=== PATIENT | male | born 1955 | race American Indian/Alaskan Native ===

== ENCOUNTER 2021-01-15 06:26 | Inpatient (IN) | payer OTHER, MEDICARE ==
[2021-01-15] MEDS ORDERED: FUROSEMIDE 40 MG/4 ML INJ IV ONE (06:33)
[2021-01-15] MEDS ORDERED: ONDANSETRON 4 MG/2 ML INJ IV ONE (06:34)
[2021-01-15] MEDS ORDERED: MORPHINE 4 MG/1 ML INJ IV ONE (06:34)
--- NOTE | 2021-01-15 06:42 | Emergency Department Report ---
ED Shortness of Breath HPI - General Chief Complaint: Dyspnea/Respdistress Stated Complaint: RESPIRATORY DISTRESS Time Seen by Provider: 01/15/21 06:30 Source: patient, EMS Mode of arrival: Stretcher Limitations: No Limitations - History of Present Illness Initial Comments: CC: shortness of breath, cough, body aches HPI: This is a 66 yo male with hx of CHF, AICD in situ, hyperlipidemia, HTN hx of ventricular fibrillation who presents with severe shortness of breath for 3 hours prior to arrival. Patient has had body aches and productive cough with yellow sputum. No leg swelling. No chest pain. EMS detected oxygen saturation 68% on room air. He was ambulatory on scene in spite severe hypoxia. Denies fever, headache, diarrhea, chest pain, leg swelling. Fully vaccinated against COVID-19 in July. Admitted to [place] last year. [employer] and PCP are within [place] [facility]. Patient immediately placed on CPAP with improvement of symptoms. Oxygen saturation improved to 94%. Patient received albuterol 5 mg nebulizer therapy. Patient has not been admitted for shortness of breath related to CHF on previous occasion. MD Complaint: shortness of breath, cough -: Sudden (3 hours ago) Severity: severe Consistency: constant Improves With: oxygen, bronchodilators (Albuterol), other (CPAP) Worsens With: lying flat Known History Of: congestive heart failure, other (Body aches and cough) Context: recent URI (Body aches and cough) Associated Symptoms: cough, sputum production - Related Data Home Medications Medication Instructions Recorded Confirmed Last Taken Fosinopril Sodium 10 mg PO DAILY 07/09/15 07/09/15 07/09/15 Hydralazine HCl 25 mg PO TID 07/09/15 07/09/15 07/09/15 Metoprolol Succinate 200 mg PO DAILY 07/09/15 07/09/15 07/09/15 Spironolactone 12.5 mg PO DAILY 07/10/15 07/10/15 Unknown Previous Rx's Medication Instructions Recorded Last Taken Type Amiodarone [Cordarone 200 MG TAB] 200 mg PO BID #60 tablet 07/11/15 Unknown Rx Furosemide [Lasix TAB] 80 mg PO QDAY #30 tablet 07/11/15 Unknown Rx Metoprolol Xl [Metoprolol 200 mg PO QDAY #30 tablet 07/11/15 Unknown Rx SUCCINATE ER TAB] lisinopriL [Zestril TAB] 10 mg PO QDAY #30 tablet 07/11/15 Unknown Rx oxyCODONE /ACETAMINOPHEN [Percocet 1 tab PO Q6H PRN #30 tablet 07/11/15 Unknown Rx 5/325 mg] traZODone [Desyrel] 50 mg PO QHS #30 tablet 07/11/15 Unknown Rx Allergies Allergy/AdvReac Type Severity Reaction Status Date / Time No Known Allergies Allergy Unverified 07/08/15 22:32 ED Review of Systems ROS: Stated complaint: RESPIRATORY DISTRESS Other details as noted in HPI ED Past Medical Hx - Past Medical History Previous Medical History?: Yes Hx Hypertension: Yes Hx Congestive Heart Failure: Yes Additional medical history: chemo therapy for prostate CA, - Surgical History Past Surgical History?: Yes Hx Pacemaker: Yes (defibrillator) Hx Internal Defibrillator: Yes - Family History Family history: hypertension - Social History Smoking Status: Never Smoker Substance Use Type: None - Medications Home Medications: Home Medications Medication Instructions Recorded Confirmed Last Taken Type Fosinopril Sodium 10 mg PO DAILY 07/09/15 07/09/15 07/09/15 History Hydralazine HCl 25 mg PO TID 07/09/15 07/09/15 07/09/15 History Metoprolol Succinate 200 mg PO DAILY 07/09/15 07/09/15 07/09/15 History Spironolactone 12.5 mg PO DAILY 07/10/15 07/10/15 Unknown History Amiodarone [Cordarone 200 MG TAB] 200 mg PO BID #60 tablet 07/11/15 Unknown Rx Furosemide [Lasix TAB] 80 mg PO QDAY #30 tablet 07/11/15 Unknown Rx Metoprolol Xl [Metoprolol 200 mg PO QDAY #30 tablet 07/11/15 Unknown Rx SUCCINATE ER TAB] lisinopriL [Zestril TAB] 10 mg PO QDAY #30 tablet 07/11/15 Unknown Rx oxyCODONE /ACETAMINOPHEN [Percocet 1 tab PO Q6H PRN #30 tablet 07/11/15 Unknown Rx 5/325 mg] traZODone [Desyrel] 50 mg PO QHS #30 tablet 07/11/15 Unknown Rx ED Physical Exam - General Limitations: No Limitations General appearance: alert, other (Moderate work of breathing with CPAP in place speaking full word sentences with effort ) - Head Head exam: Present: atraumatic, normocephalic - Eye Eye exam: Present: normal appearance - ENT ENT exam: Present: mucous membranes moist - Neck Neck exam: Present: normal inspection, full ROM - Respiratory Respiratory exam: Present: respiratory distress, rales, rhonchi, accessory muscle use, decreased breath sounds - Cardiovascular Cardiovascular Exam: Present: regular rate, normal rhythm, normal heart sounds. Absent: systolic murmur, diastolic murmur, rubs, gallop - GI/Abdominal GI/Abdominal exam: Present: soft. Absent: distended, tenderness, guarding, rebound - Rectal Rectal exam: Present: deferred - Extremities Exam Extremities exam: Present: normal inspection, other (No lower extremity edema) - Neurological Exam Neurological exam: Present: alert, oriented X3 - Psychiatric Psychiatric exam: Present: normal affect, normal mood - Skin Skin exam: Present: warm, dry, intact, normal color. Absent: rash ED Course Vital Signs 01/15/21 01/15/21 01/15/21 06:25 06:33 09:59 Temperature 97.3 F L Pulse Rate 60 68 Respiratory 22 26 H Rate Blood Pressure 152/99 Blood Pressure 152/99 [Right] O2 Sat by Pulse 100 100 94 Oximetry - Reevaluation(s) Reevaluation #1: 01/15/21 08:29 I reassessed patient. He is appears comfortable on noninvasive positive. Patient. With settings IPAP 16 EPAP 10 FiO2 30% oxygen saturation 94%. As respiratory therapist to provide a trial of Venturi mask. Reevaluation #2: 01/15/21 09:30 Respiratory therapist therapy update. She reassessed the patient. She placed patient on 4 L nasal cannula. Patient is comfortable and maintaining oxygen saturations. 01/15/21 09:30 ED Medical Decision Making - Lab Data Result diagrams: 01/15/21 07:04 01/15/21 07:04 - Radiology Data Radiology results: report reviewed [facility] [address] [place] [address] XRay Report Signed Patient: EMIGDIO DENG MR#: [id number] : 1955 Acct:[id number] Age/Sex: 66 / M ADM Date: 01/15/21 Loc: ED Attending Dr: Ordering Physician: Bekah Mccoy MD Date of Service: 01/15/21 Procedure(s): XR chest 1V ap Accession Number(s): [id number] cc: Bekah Mccoy MD Fluoro Time In Minutes: CHEST 1 VIEW INDICATION: Dyspnea. COMPARISON: 07/08/2015 FINDINGS: SUPPORT DEVICES: None. HEART: Stable cardiomegaly with cardiac leads projecting over the right atrium and the right ventricle. LUNGS/PLEURA: Moderate interstitial edema. No effusion. ADDITIONAL FINDINGS: None. IMPRESSION: 1. Stable cardiomegaly with moderate edema. Signer Name: Ej Massey MD Signed: 01/15/2021 7:04 AM Workstation Name: [id number] Transcribed By: MICHEL Dictated By: Ej Massey MD Electronically Authenticated By: Ej Massey MD Signed Date/Time: 01/15/21703 DD/ 2 TD/TT: - Medical Decision Making This is a 6-year-old male with history of CHF/cardiomyopathy who presents with severe hypoxia requiring noninvasive positive pressure ventilation. Patient also presents with cough productive with body aches. He is vaccinated for COVID-19. However I am concerned for breakthrough Covid infection. Patient has not been admitted for CHF exacerbation according to his report. He has not had severe shortness of breath suggest this. Patient does have lymphopenia on CBC. Elevated ferritin, mildly elevated D-dimer. BNP also elevated. Address multifocal pneumonia and her myopathy with ceftriaxone IV, IV azithromycin, IV Decadron, IV Lasix. Patient only has slightly elevated blood pressure. Patient is admitted to [facility] [place] telemetry. He is comfortable on noninv asive positive pressure ventilation at this time. Critical Care Time: Yes Critical care time in (mins) excluding proc time.: 40 Critical care attestation.: If time is entered above; I have spent that time in minutes in the direct care of this critically ill patient, excluding procedure time. 40 minutes of critical care time excluding procedures were used in the care of the patient. I listen to the EMS radio report alongside charge nurse prior to patient's arrival. I asked charge nurse to contact respiratory therapist for noninvasive positive pressure ventilation to be present in room prior to patient's arrival. I met the patient and paramedics at the EMS wall. I escorted patient in paramedics to treatment room while obtaining bedside reportI obtained history from EMS at the bedside. I discussed treatment plan with the nursing team members. I discussed treatment plan respiratory therapist. I was concerned for imminent airway compromise concerning severe hypoxia. I kept the family members informed. Patient required multiple interventions and reassessments. ED Disposition Clinical Impression: Acute respiratory failure with hypoxia, Suspected COVID-19 virus infection, Multifocal pneumonia, Acute systolic heart failure, Pulmonary edema Disposition: OP ADMIT IP TO THIS HOSP Is pt being admited?: Yes Does the pt Need Aspirin: No Condition: Fair Instructions: Pulmonary Edema (ED), Bacterial Pneumonia (ED) Referrals: PRIMARY CARE, [Primary Care Provider] - 3-5 Days
--- NOTE | 2021-01-15 07:08 | XRay Report ---
CHEST 1 VIEW INDICATION: Dyspnea. COMPARISON: 07/08/2015 FINDINGS: SUPPORT DEVICES: None. HEART: Stable cardiomegaly with cardiac leads projecting over the right atrium and the right ventricl e. LUNGS/PLEURA: Moderate interstitial edema. No effusion. ADDITIONAL FINDINGS: None. IMPRESSION: 1. Stable cardiomegaly with moderate edema. Signer Name: Ej Massey MD Signed: 01/15/2021 7:04 AM Workstation Name: [id number]
[2021-01-15 07:35] LABS: Basophils % (Auto) 0.4 % (0.0-1.8); Eosinophils # (Auto) 0.1 K/mm3 (0.0-0.4); Eosinophils % (Auto) 1.2 % (0.0-4.3); Hematocrit 36.2 % (35.5-45.6); Hemoglobin 12.4 gm/dl (11.8-15.2); Lymphocytes # (Auto) 0.7 K/mm3 (1.2-5.4); Lymphocytes % (Auto) 8.7 % (13.4-35.0); Mean Corpuscular HGB Conc 34 % (32-34); Mean Corpuscular Volume 104 fl (84-94); Monocytes # (Auto) 0.5 K/mm3 (0.0-0.8); Monocytes % (Auto) 6.3 % (0.0-7.3); Platelet Count 233 K/mm3 (140-440); Red Blood Count 3.48 M/mm3 (3.65-5.03); Red Cell Distribution Width 13.2 % (13.2-15.2)
[2021-01-15 07:48] LABS: C-Reactive Protein 0.1 mg/dL (0.00-1.30)
[2021-01-15 08:06] LABS: Alanine Aminotransferase 21 units/L (7-56); Albumin 4.2 g/dL (3.9-5); BUN/Creatinine Ratio 18; Blood Urea Nitrogen 25 mg/dL (9-20); Calcium 9.2 mg/dL (8.4-10.2); Hemolysis Index 5
[2021-01-15] MEDS ORDERED: cefTRIAXone/NS 1 GM/50 ML 1 GM/50 ML BAG IV ONE (08:20)
[2021-01-15] MEDS ORDERED: AZITHROMYCIN/NS 500 MG/250 ML 500 MG/250 ML BAG IV ONE (08:20)
[2021-01-15] MEDS ORDERED: dexAMETHasone 20 MG/5 ML VIAL IV ONE (08:20)
[2021-01-15] MEDS ORDERED: ALBUTEROL 2.5 MG/3 ML NEBU IH PRN (09:09)
[2021-01-15] MEDS ORDERED: ACETAMINOPHEN 325 MG TAB PO PRN (09:09)
[2021-01-15] MEDS ORDERED: NALOXONE 0.4 MG/1 ML INJ IV PRN (09:09)
[2021-01-15] MEDS ORDERED: MORPHINE 2 MG/1 ML INJ IV PRN (09:09)
[2021-01-15] MEDS ORDERED: ONDANSETRON 4 MG/2 ML INJ IV PRN (09:09)
--- NOTE | 2021-01-15 09:18 | History and Physical Report ---
History of Present Illness Date of examination: 01/15/21 Date of admission: 01/15/21 Chief complaint: shortness of breath History of present illness: Patient is a 66-year-old male with hx of CHF, AICD in situ, hyperlipidemia, HTN hx of ventricular fibrillation, BARBARA who presents with severe shortness of breath for 3 hours prior to arrival. He reports that this morning but he woke up with cough and profuse sweating. He proceeded to call EMS who on arrival noted that the patient's oxygen saturation was 68% on room air and remarkably was ambulatory despite his severe hypoxia. He was brought to the hospital for further evaluation. He denies any chest pain nausea vomiting or diarrhea he reports that he was fully vaccinated against COVID-19 in July. 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 He does tell me that he is supposed to be on a CPAP at home for obstructivesleepapnea but has not been able to use it due to not being able to tolerate the device. In the ER he was immediately put on BiPAP with oxygen im provement to 94%. Past History Past Medical History: CAD, heart failure, hypertension, other (prostate CA S/P CHEMO) Past Surgical History: Other (AICD) Family history: no significant family history Medications and Allergies Allergies Allergy/AdvReac Type Severity Reaction Status Date / Time No Known Allergies Allergy Unverified 07/08/15 22:32 Home Medications Medication Instructions Recorded Confirmed Last Taken Type Fosinopril Sodium 10 mg PO DAILY 07/09/15 07/09/15 07/09/15 History Hydralazine HCl 25 mg PO TID 07/09/15 07/09/15 07/09/15 History Metoprolol Succinate 200 mg PO DAILY 07/09/15 07/09/15 07/09/15 History Spironolactone 12.5 mg PO DAILY 07/10/15 07/10/15 Unknown History Amiodarone [Cordarone 200 MG TAB] 200 mg PO BID #60 tablet 07/11/15 Unknown Rx Furosemide [Lasix TAB] 80 mg PO QDAY #30 tablet 07/11/15 Unknown Rx Metoprolol Xl [Metoprolol 200 mg PO QDAY #30 tablet 07/11/15 Unknown Rx SUCCINATE ER TAB] lisinopriL [Zestril TAB] 10 mg PO QDAY #30 tablet 07/11/15 Unknown Rx oxyCODONE /ACETAMINOPHEN [Percocet 1 tab PO Q6H PRN #30 tablet 07/11/15 Unknown Rx 5/325 mg] traZODone [Desyrel] 50 mg PO QHS #30 tablet 07/11/15 Unknown Rx Active Meds: Active Medications Acetaminophen (Acetaminophen 325 Mg Tab) 650 mg PO Q4H PRN PRN Reason: Pain MILD(1-3)/Fever >100.5/ANGELES Albuterol (Albuterol 2.5 Mg/3 Ml Nebu) 2.5 mg IH Q3HRT PRN PRN Reason: Shortness Of Breath Albuterol/Ipratropium (Ipratropium/Albuterol Sulfate 3 Ml Ampul.Neb) 1 ampul IH Q6HRT SAMIA Amiodarone HCl (Amiodarone 200 Mg Tab) 200 mg PO DAILY SAMIA Furosemide (Furosemide 40 Mg Tab) 80 mg PO QDAY SAMIA Azithromycin (Zithromax/Ns) 500 mg in 250 mls @ 250 mls/hr IV ONCE ONE; Protocol Stop: 01/15/21 09:19 Morphine Sulfate (Morphine 2 Mg/1 Ml Inj) 2 mg IV Q4H PRN PRN Reason: Pain, Moderate (4-6) Naloxone HCl (Naloxone 0.4 Mg/1 Ml Inj) 0.1 mg IV Q2MIN PRN PRN Reason: Res Rate </= 8 or 02 SAT < 92% Ondansetron HCl (Ondansetron 4 Mg/2 Ml Inj) 4 mg IV Q4H PRN PRN Reason: Nausea And Vomiting Sodium Chloride (Sodium Chloride 0.9% 10 Ml Flush Syringe) 10 ml IV BID SAMIA Sodium Chloride (Sodium Chloride 0.9% 10 Ml Flush Syringe) 10 ml IV PRN PRN PRN Reason: LINE FLUSH Review of Systems All systems: negative Constitutional: sweats Cardiovascular: shortness of breath, no chest pain, no orthopnea, no rapid/irregular heart beat, no edema, no syncope, no lightheadedness Respiratory: cough, shortness of breath, no cough with sputum, no hemoptysis, no congestion, no home oxygen Gastrointestinal: no vomiting, no constipation Musculoskeletal: no neck pain, no low back pain, no shooting leg pain, no morning stiffness, no muscle cramps Integumentary: no pruritis, no sores Neurological: no tingling, no tremors, no convulsions, no change in mentation, no double vision, no hearing difficulties Exam - Physical Exam Narrative exam: VITAL SIGNS: Reviewed. GENERAL: The patient appears normally developed, obese, mild distress vital signs as documented. HEAD: No signs of head trauma. EYES: Pupils are equal. Extraocular motions intact. EARS: Hearing grossly intact. MOUTH: Oropharynx is normal. NECK: No adenopathy, no JVD. CHEST: Chest with diminished breath sounds bilaterally. Tachypnea no wheezes, rales, or rhonchi. CARDIAC: Regular rate and rhythm. S1 and S2, without murmurs, gallops, or rubs. VASCULAR: No Edema. Peripheral pulses normal and equal in all extremities. ABDOMEN: Soft, non tender and non distended. No rebound or guarding, and no masses palpated. Bowel Sounds normal. MUSCULOSKELETAL: Good range of motion of all major joints. Extremities without clubbing, cyanosis or edema. NEUROLOGIC EXAM: Alert and oriented x 3 No focal sensory or strength deficits. Speech normal. Follows commands. PSYCHIATRIC: Mood normal. SKIN: detail exam as documented in skin assessment - Constitutional Vitals: Temp Pulse Resp BP Pulse Ox 97.3 F L 68 26 H 152/99 100 01/15/21 06:33 01/15/21 06:33 01/15/21 06:33 01/15/21 06:33 01/15/21 06:33 Results - Labs CBC & Chem 7: 01/15/21 07:04 01/15/21 07:04 Labs: Laboratory Last Values WBC 7.7 K/mm3 (4.5-11.0) 01/15/21 07:04 RBC 3.48 M/mm3 (3.65-5.03) L 01/15/21 07:04 Hgb 12.4 gm/dl (11.8-15.2) 01/15/21 07:04 Hct 36.2 % (35.5-45.6) 01/15/21 07:04 MCV 104 fl (84-94) H 01/15/21 07:04 MCH 36 pg (28-32) H 01/15/21 07:04 MCHC 34 % (32-34) 01/15/21 07:04 RDW 13.2 % (13.2-15.2) 01/15/21 07:04 Plt Count 233 K/mm3 (140-440) 01/15/21 07:04 Lymph % (Auto) 8.7 % (13.4-35.0) L 01/15/21 07:04 Wright % (Auto) 6.3 % (0.0-7.3) 01/15/21 07:04 Eos % (Auto) 1.2 % (0.0-4.3) 01/15/21 07:04 Baso % (Auto) 0.4 % (0.0-1.8) 01/15/21 07:04 Lymph # (Auto) 0.7 K/mm3 (1.2-5.4) L 01/15/21 07:04 Wright # (Auto) 0.5 K/mm3 (0.0-0.8) 01/15/21 07:04 Eos # (Auto) 0.1 K/mm3 (0.0-0.4) 01/15/21 07:04 Baso # (Auto) 0.0 K/mm3 (0.0-0.1) 01/15/21 07:04 Seg Neutrophils % 83.4 % (40.0-70.0) H 01/15/21 07:04 Seg Neutrophils # 6.4 K/mm3 (1.8-7.7) 01/15/21 07:04 D-Dimer 548.11 ng/mlDDU (0-234) H 01/15/21 07:04 Sodium 140 mmol/L (137-145) 01/15/21 07:04 Potassium 3.6 mmol/L (3.6-5.0) 01/15/21 07:04 Chloride 104.4 mmol/L (98-107) 01/15/21 07:04 Carbon Dioxide 25 mmol/L (22-30) 01/15/21 07:04 Anion Gap 14 mmol/L 01/15/21 07:04 BUN 25 mg/dL (9-20) H 01/15/21 07:04 Creatinine 1.4 mg/dL (0.8-1.3) H 01/15/21 07:04 Estimated GFR > 60 ml/min 01/15/21 07:04 BUN/Creatinine Ratio 18 % 01/15/21 07:04 Glucose 184 mg/dL (75-100) H 01/15/21 07:04 Glucose 189 mg/dL (75-100) H 01/15/21 07:04 Calcium 9.2 mg/dL (8.4-10.2) 01/15/21 07:04 Ferritin 425.4 ng/mL (30.0-300.0) H 01/15/21 07:04 Total Bilirubin 0.30 mg/dL (0.1-1.2) 01/15/21 07:04 AST 23 units/L (5-40) 01/15/21 07:04 ALT 21 units/L (7-56) 01/15/21 07:04 Alkaline Phosphatase 58 units/L (35-129) 01/15/21 07:04 Lactate Dehydrogenase 209 units/L (91-180) H 01/15/21 07:04 Lactate Dehydrogenase 219 units/L (91-180) H 01/15/21 07:04 C-Reactive Protein 0.10 mg/dL (0.00-1.30) 01/15/21 07:04 C-Reactive Protein 0.10 mg/dL (0.00-1.30) 01/15/21 07:04 NT-Pro-B Natriuret Pep 4633 pg/mL (0-900) H 01/15/21 07:04 Total Protein 6.8 g/dL (6.3-8.2) 01/15/21 07:04 Albumin 4.2 g/dL (3.9-5) 01/15/21 07:04 Albumin/Globulin Ratio 1.6 % 01/15/21 07:04 Microbiology: Microbiology 01/15/21 07:09 Peripheral/Venous Blood Culture - Preliminary Culture in Progress 01/15/21 07:04 Peripheral/Venous Blood Culture - Preliminary Culture in Progress Assessment and Plan Assessment and plan: Patient is a 66-year-old male with hx of CHF, AICD in situ, hyperlipidemia, HTN hx of ventricular fibrillation, BARBARA who presents with severe shortness of breath for 3 hours prior to arrival. He reports that this morning but he woke up with cough and profuse sweating. He proceeded to call EMS who on arrival noted that the patient's oxygen saturation was 68% on room air and remarkably was ambulatory despite his severe hypoxia. He was brought to the hospital for further evaluation. He denies any chest pain nausea vomiting or diarrhea he reports that he was fully vaccinated against COVID-19 in July. 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 He does tell me that he is supposed to be on a CPAP at home for obs tructivesleepapnea but has not been able to use it due to not being able to tolerate the device. In the ER he was immediately put on BiPAP with oxygen improvement to 94%. Chest x-ray showed bilateral pulmonary edema mild otherwise stable cardiomyopathy Acute respiratory failure with hypoxia, Suspected COVID-19 virus infection, Acute systolic heart failure, Pulmonary edema Mild elevated D-dimer we will rule out pulmonary embolism Obstructive sleep apnea PLAN Admit to [facility] until covid 19 ruled out then will transfer to [facility] Start on emperic antibiotics for possible multifocal pneumonia ceftriaxone IV, IV azithromycin, Start on IV Decadron Till COVID RULED OUT Patient received IV Lasix in the ER will transition to p.o. when able and monitor. Cardiology and pulmonary consult Obtain an ABG Resume appropriate home medication Send blood cultures if any fever develops While acute kidney injury precludes use of CTA to rule out pulmonary embolism we will treat the patient empirically for the same until we can rule this out. Plan discussed with the patient we will try to get records from the [place]. GI prophylaxis Advance Directives: Yes Plan of care discussed with patient/family: Yes
[2021-01-15] MEDS ORDERED: ENOXAPARIN 100 MG/1 ML INJ SUB-Q SCH (10:00)
[2021-01-15] MEDS: ENOXAPARIN 80 MG/0.8 ML INJ SUB-Q SCH ×2 (10:00→22:07)
[2021-01-15] MEDS: AMIODARONE 200 MG TAB PO SCH (11:28)
[2021-01-15] MEDS: FUROSEMIDE 40 MG TAB PO SCH (11:28)
[2021-01-15] MEDS: IPRATROPIUM/ALBUTEROL SULFATE 3 ML AMPUL.NEB IH SCH ×2 (15:40→20:31)
[2021-01-16] MEDS: IPRATROPIUM/ALBUTEROL SULFATE 3 ML AMPUL.NEB IH SCH ×4 (03:59→21:03)
[2021-01-16 05:23] LABS: Hematocrit 36.5 % (35.5-45.6); Hemoglobin 12.9 gm/dl (11.8-15.2); Lymphocytes # (Auto) 0.6 K/mm3 (1.2-5.4); Lymphocytes % (Auto) 8.4 % (13.4-35.0); Mean Corpuscular HGB Conc 35 % (32-34); Mean Corpuscular Volume 103 fl (84-94); Monocytes # (Auto) 0.5 K/mm3 (0.0-0.8); Monocytes % (Auto) 6.6 % (0.0-7.3); Platelet Count 242 K/mm3 (140-440); Red Blood Count 3.53 M/mm3 (3.65-5.03); Red Cell Distribution Width 13.1 % (13.2-15.2)
[2021-01-16 05:46] LABS: Alanine Aminotransferase 20 units/L (7-56); Albumin 4.5 g/dL (3.9-5); BUN/Creatinine Ratio 18; Blood Urea Nitrogen 22 mg/dL (9-20); Calcium 10.2 mg/dL (8.4-10.2); Hemolysis Index 8
--- NOTE | 2021-01-16 08:05 | Consultation ---
History of Present Illness History of present illness: This is a 66yo AAM w hx jennifer CMP, sp aicd chf who comes in w cough and diaphoresis. He was doing well until he was awaken w the above symptoms. They got and he came to er by ems. In the er he was started on bipap, o2 and recd neb tx and diuretics w improvement.Presently on ra. hx of tobacco use in distant past. covid neg Past History Past Medical History: CAD, heart failure, hypertension, other (prostate CA S/P CHEMO) Past Surgical History: Other (AICD) Social history: Lives alone, smoking (quit 40yrs ago) Family history: hypertension Medications and Allergies Allergies Allergy/AdvReac Type Severity Reaction Status Date / Time No Known Allergies Allergy Unverified 07/08/15 22:32 Home Medications Medication Instructions Recorded Confirmed Last Taken Type Fosinopril Sodium 10 mg PO DAILY 07/09/15 07/09/15 07/09/15 History Hydralazine HCl 25 mg PO TID 07/09/15 07/09/15 07/09/15 History Metoprolol Succinate 200 mg PO DAILY 07/09/15 07/09/15 07/09/15 History Spironolactone 12.5 mg PO DAILY 07/10/15 07/10/15 Unknown History Amiodarone [Cordarone 200 MG TAB] 200 mg PO BID #60 tablet 07/11/15 Unknown Rx Furosemide [Lasix TAB] 80 mg PO QDAY #30 tablet 07/11/15 Unknown Rx Metoprolol Xl [Metoprolol 200 mg PO QDAY #30 tablet 07/11/15 Unknown Rx SUCCINATE ER TAB] lisinopriL [Zestril TAB] 10 mg PO QDAY #30 tablet 07/11/15 Unknown Rx oxyCODONE /ACETAMINOPHEN [Percocet 1 tab PO Q6H PRN #30 tablet 07/11/15 Unknown Rx 5/325 mg] traZODone [Desyrel] 50 mg PO QHS #30 tablet 07/11/15 Unknown Rx Active Meds: Active Medications Acetaminophen (Acetaminophen 325 Mg Tab) 650 mg PO Q4H PRN PRN Reason: Pain MILD(1-3)/Fever >100.5/ANGELES Albuterol (Albuterol 2.5 Mg/3 Ml Nebu) 2.5 mg IH Q3HRT PRN PRN Reason: Shortness Of Breath Albuterol/Ipratropium (Ipratropium/Albuterol Sulfate 3 Ml Ampul.Neb) 1 ampul IH Q6HRT [facility] Last Admin: 01/16/21 07:48 Dose: 1 ampul Documented by: Amiodarone HCl (Amiodarone 200 Mg Tab) 200 mg PO DAILY [facility] Last Admin: 01/15/21 11:28 Dose: 200 mg Documented by: Dexamethasone (Dexamethasone 4 Mg/Ml Vial) 6 mg IV DAILY [facility] Enoxaparin Sodium (Enoxaparin 80 Mg/0.8 Ml Inj) 80 mg SUB-Q Q12HR [facility] Last Admin: 01/15/21 22:07 Dose: 80 mg Documented by: Furosemide (Furosemide 40 Mg Tab) 80 mg PO QDAY [facility] Last Admin: 01/15/21 11:28 Dose: 80 mg Documented by: Azithromycin (Zithromax/Ns) 500 mg in 250 mls @ 250 mls/hr IV Q24H [facility] Stop: 01/19/21 10:59 Ceftriaxone Sodium (Rocephin/Ns 1 Gm/50 Ml) 1 gm in 50 mls @ 100 mls/hr IV Q24H [facility]; Protocol Stop: 01/19/21 10:29 Morphine Sulfate (Morphine 2 Mg/1 Ml Inj) 2 mg IV Q4H PRN PRN Reason: Pain, Moderate (4-6) Naloxone HCl (Naloxone 0.4 Mg/1 Ml Inj) 0.1 mg IV Q2MIN PRN PRN Reason: Res Rate </= 8 or 02 SAT < 92% Ondansetron HCl (Ondansetron 4 Mg/2 Ml Inj) 4 mg IV Q4H PRN PRN Reason: Nausea And Vomiting Sodium Chloride (Sodium Chloride 0.9% 10 Ml Flush Syringe) 10 ml IV BID [facility] Last Admin: 01/15/21 22:07 Dose: 10 ml Documented by: Sodium Chloride (Sodium Chloride 0.9% 10 Ml Flush Syringe) 10 ml IV PRN PRN PRN Reason: LINE FLUSH Review of Systems Constitutional: sweats Cardiovascular: shortness of breath Physical Examination Vital signs: Vital Signs Pulse Resp BP Pulse Ox 60 22 152/99 100 01/15/21 06:25 01/15/21 06:25 01/15/21 06:25 01/15/21 06:25 General appearance: no acute distress, alert Eyes: non-icteric ENT: oropharynx moist Neck: supple Effort: normal Ascultation: Bilateral: clear, diminished breath sounds Cardiovascular: regular rate and rhythm Gastrointestinal: normoactive bowel sounds, soft, non-tender, non-distended Integumentary: normal Extremities: no cyanosis Musculoskeletal: no deformities Results - Laboratory Findings CBC and BMP: 01/16/21 04:36 01/16/21 04:36 PT/INR, D-dimer D-Dimer 548.11 ng/mlDDU (0-234) H 01/15/21 07:04 Abnormal lab findings: Abnormal Labs 01/15/21 01/15/21 01/15/21 07:04 07:04 07:04 RBC MCV MCH MCHC RDW Lymph % (Auto) Lymph # (Auto) Seg Neutrophils % D-Dimer 548.11 H BUN 25 H Creatinine 1.4 H Glucose 184 H Ferritin 425.4 H Lactate Dehydrogenase 219 H NT-Pro-B Natriuret Pep 01/15/21 01/15/21 01/15/21 07:04 07:04 07:04 RBC 3.48 L MCV 104 H MCH 36 H MCHC RDW Lymph % (Auto) 8.7 L Lymph # (Auto) 0.7 L Seg Neutrophils % 83.4 H D-Dimer BUN Creatinine Glucose 189 H Ferritin Lactate Dehydrogenase 209 H NT-Pro-B Natriuret Pep 4633 H 01/16/21 01/16/21 04:36 04:36 RBC 3.53 L MCV 103 H MCH 36 H MCHC 35 H RDW 13.1 L Lymph % (Auto) 8.4 L Lymph # (Auto) 0.6 L Seg Neutrophils % 85.0 H D-Dimer BUN 22 H Creatinine Glucose 115 H Ferritin Lactate Dehydrogenase NT-Pro-B Natriuret Pep - Diagnostic Findings Chest x-ray: report reviewed, image reviewed Assessment and Plan - Patient Problems (1) Acute respiratory failure with hypoxia Current Visit: Yes Status: Acute (2) Acute systolic heart failure Current Visit: Yes Status: Acute (3) Pulmonary edema Current Visit: Yes Status: Acute (4) AICD discharge Current Visit: No Status: Acute (5) Cardiomyopathy Current Visit: No Status: Acute
[2021-01-16] MEDS ORDERED: AZITHROMYCIN/NS 500 MG/250 ML 500 MG/250 ML BAG IV SCH (10:00)
[2021-01-16] MEDS ORDERED: dexAMETHasone 4 MG/ML VIAL IV SCH (10:00)
[2021-01-16] MEDS: FUROSEMIDE 40 MG TAB PO SCH (10:37)
[2021-01-16] MEDS: AMIODARONE 200 MG TAB PO SCH (10:37)
[2021-01-16] MEDS: ENOXAPARIN 80 MG/0.8 ML INJ SUB-Q SCH (10:38)
[2021-01-16] MEDS: cefTRIAXone/NS 1 GM/50 ML 1 GM/50 ML BAG IV SCH (10:39)
--- NOTE | 2021-01-16 13:28 | Consultation ---
History of Present Illness Consult date: 01/16/21 Consult reason: congestive heart failure History of present illness: The patient is a 66-year-old man with longstanding, severe nonischemic cardiomyopathy and chronic systolic left ventricular failure. He has an in situ [employer] cardiac defibrillator. He is on guideline directed medical therapy. He receives his usual cardiac care at the [facility]. He presents to the hospital at this time with 2 days of increasing fatigue, cough and shortness of breath. He states that his symptoms began after he got done moving some furniture around his house. There was no chest pain, no palpitations, no ICD discharge. He admits to poor compliance with dietary salt intake over the last several weeks, stating that the day before his symptoms began he also has a meal of [place] sausage that was very salty. He was seen in the emergency room and referred for admission, feels somewhat better after initial intravenous diuretics. ECG done in the hospital is not available in the chart, on environmental monitoring specialist he is in a sinus rhythm with a right bundle branch block morphology. Chest x-ray shows a cardiomegaly, in situ dual-chamber ICD, and a moderate to severe, mostly right lung infiltrate. A COVID-19 test done in the hospital reported negative. Past History Past Medical History: heart failure, hypertension, other (prostate CA S/P CHEMO) Past Surgical History: Other (AICD) Social history: Lives alone, smoking (quit 40yrs ago) Family history: hypertension Medications and Allergies Allergies Allergy/AdvReac Type Severity Reaction Status Date / Time No Known Allergies Allergy Unverified 07/08/15 22:32 Home Medications Medication Instructions Recorded Confirmed Last Taken Type Fosinopril Sodium 10 mg PO DAILY 07/09/15 07/09/15 07/09/15 History Hydralazine HCl 25 mg PO TID 07/09/15 07/09/15 07/09/15 History Metoprolol Succinate 200 mg PO DAILY 07/09/15 07/09/15 07/09/15 History Spironolactone 12.5 mg PO DAILY 07/10/15 07/10/15 Unknown History Amiodarone [Cordarone 200 MG TAB] 200 mg PO BID #60 tablet 07/11/15 Unknown Rx Furosemide [Lasix TAB] 80 mg PO QDAY #30 tablet 07/11/15 Unknown Rx Metoprolol Xl [Metoprolol 200 mg PO QDAY #30 tablet 07/11/15 Unknown Rx SUCCINATE ER TAB] lisinopriL [Zestril TAB] 10 mg PO QDAY #30 tablet 07/11/15 Unknown Rx oxyCODONE /ACETAMINOPHEN [Percocet 1 tab PO Q6H PRN #30 tablet 07/11/15 Unknown Rx 5/325 mg] traZODone [Desyrel] 50 mg PO QHS #30 tablet 07/11/15 Unknown Rx Active Meds: Active Medications Acetaminophen (Acetaminophen 325 Mg Tab) 650 mg PO Q4H PRN PRN Reason: Pain MILD(1-3)/Fever >100.5/ANGELES Albuterol (Albuterol 2.5 Mg/3 Ml Nebu) 2.5 mg IH Q3HRT PRN PRN Reason: Shortness Of Breath Albuterol/Ipratropium (Ipratropium/Albuterol Sulfate 3 Ml Ampul.Neb) 1 ampul IH Q6HRT [facility] Last Admin: 01/16/21 07:48 Dose: 1 ampul Documented by: Amiodarone HCl (Amiodarone 200 Mg Tab) 200 mg PO DAILY [facility] Last Admin: 01/16/21 10:37 Dose: 200 mg Documented by: Dexamethasone (Dexamethasone 4 Mg/Ml Vial) 6 mg IV DAILY [facility] Last Admin: 01/16/21 10:38 Dose: 6 mg Documented by: Enoxaparin Sodium (Enoxaparin 80 Mg/0.8 Ml Inj) 80 mg SUB-Q Q12HR [facility] Last Admin: 01/16/21 10:38 Dose: 80 mg Documented by: Furosemide (Furosemide 40 Mg Tab) 80 mg PO QDAY [facility] Last Admin: 01/16/21 10:37 Dose: 80 mg Documented by: Azithromycin (Zithromax/Ns) 500 mg in 250 mls @ 250 mls/hr IV Q24H [facility] Stop: 01/19/21 10:59 Ceftriaxone Sodium (Rocephin/Ns 1 Gm/50 Ml) 1 gm in 50 mls @ 100 mls/hr IV Q24H [facility]; Protocol Stop: 01/19/21 10:29 Last Admin: 01/16/21 10:39 Dose: 100 mls/hr Documented by: Morphine Sulfate (Morphine 2 Mg/1 Ml Inj) 2 mg IV Q4H PRN PRN Reason: Pain, Moderate (4-6) Naloxone HCl (Naloxone 0.4 Mg/1 Ml Inj) 0.1 mg IV Q2MIN PRN PRN Reason: Res Rate </= 8 or 02 SAT < 92% Ondansetron HCl (Ondansetron 4 Mg/2 Ml Inj) 4 mg IV Q4H PRN PRN Reason: Nausea And Vomiting Sodium Chloride (Sodium Chloride 0.9% 10 Ml Flush Syringe) 10 ml IV BID [facility] Last Admin: 01/16/21 10:40 Dose: 10 ml Documented by: Sodium Chloride (Sodium Chloride 0.9% 10 Ml Flush Syringe) 10 ml IV PRN PRN PRN Reason: LINE FLUSH Review of Systems Cardiovascular: orthopnea, shortness of breath, dyspnea on exertion, no chest pain, no palpitations, no rapid/irregular heart beat, no edema, no syncope, no lightheadedness Physical Examination Vital Signs Pulse Resp BP Pulse Ox 60 22 152/99 100 01/15/21 06:25 01/15/21 06:25 01/15/21 06:25 01/15/21 06:25 General appearance: no acute distress HEENT: Positive: PERRL Neck: Positive: neck supple Cardiac: Positive: Reg Rate and Rhythm Lungs: Positive: Decreased Breath Sounds Neuro: Positive: Grossly Intact Abdomen: Positive: Soft Male genitourinary: Positive: deferred Skin: Positive: Clear Extremities: Absent: edema Results 01/16/21 04:36 01/16/21 04:36 Cardiac Enzymes 01/16/21 Range/Units 04:36 AST 19 (5-40) units/L CBC 01/16/21 Range/Units 04:36 WBC 7.6 (4.5-11.0) K/mm3 RBC 3.53 L (3.65-5.03) M/mm3 Hgb 12.9 (11.8-15.2) gm/dl Hct 36.5 (35.5-45.6) % Plt Count 242 (140-440) K/mm3 Lymph # (Auto) 0.6 L (1.2-5.4) K/mm3 [place] # (Auto) 0.5 (0.0-0.8) K/mm3 Eos # (Auto) 0.0 (0.0-0.4) K/mm3 Baso # (Auto) 0.0 (0.0-0.1) K/mm3 Comprehensive Metabolic Panel 01/16/21 Range/Units 04:36 Sodium 142 (137-145) mmol/L Potassium 4.9 D (3.6-5.0) mmol/L Chloride 102.9 (98-107) mmol/L Carbon Dioxide 30 (22-30) mmol/L BUN 22 H (9-20) mg/dL Creatinine 1.2 (0.8-1.3) mg/dL Glucose 115 H (75-100) mg/dL Calcium 10.2 (8.4-10.2) mg/dL AST 19 (5-40) units/L ALT 20 (7-56) units/L Alkaline Phosphatase 60 (35-129) units/L Total Protein 6.8 (6.3-8.2) g/dL Albumin 4.5 (3.9-5) g/dL EKG interpretations - Telemetry EKG Rhythm: Sinus Rhythm Assessment and Plan - Patient Problems (1) Acute on chronic systolic heart failure Current Visit: Yes Status: Acute Plan to address problem: Patient has a history of long standing, chronic left ventricular systolic failure, presents with symptoms of heart failure exacerbation, likely exacerbated by dietary salt indiscretion. The chest x-ray shows a predominant right lung infiltrate, suggesting perhaps an atypical pneumonia. Will defer to pulmonary medicine for further management, and consider a recheck of his Covid 19 test.
--- NOTE | 2021-01-16 14:16 | Progress Note ---
Assessment and Plan Assessment and plan: Patient is a 66-year-old male with hx of CHF, AICD in situ, hyperlipidemia, HTN hx of ventricular fibrillation, BARBARA who presents with severe shortness of breath for 3 hours prior to arrival. He reports that this morning but he woke up with cough and profuse sweating. He proceeded to call EMS who on arrival noted that the patient's oxygen saturation was 68% on room air and remarkably was ambulatory despite his severe hypoxia. He was brought to the hospital for further evaluation. He denies any chest pain nausea vomiting or diarrhea he reports that he was fully vaccinated against COVID-19 in July. 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 He does tell me that he is supposed to be on a CPAP at home for obstructivesleepapnea but has not been able to use it due to not being able to tolerate the device. In the ER he was immediately put on BiPAP with oxygen improvement to 94%. Chest x-ray showed bilateral pulmonary edema mild otherwise stable c ardiomyopathy Acute respiratory failure with hypoxia, Suspected COVID-19 virus infection, Acute systolic heart failure, Pulmonary edema Clinically 39 Obstructive sleep apnea PLAN Covid test is negative patient will be transferred to telemetry. Is apparent that this is likely secondary to flash pulmonary edema which has improved. Continue diuresis will give additional 20 units of IV Lasix in addition to daily 80 mg Anticipate discharge in a.m. Continue emperic antibiotics for possible multifocal pneumonia ceftriaxone IV, IV azithromycin, Discontinue Decadron since Covid is ruled out Cardiology and pulmonary input noted Resume appropriate home medication Send blood cultures if any fever develops We will also discontinue full dose Lovenox and start on DVT prophylactic dose. Doubt pulmonary embolism considering remarkable improvement GI prophylaxis History Interval history: Patient seen and examined this morning doing well no new complaints. He has been weaned off the BiPAP and is on 2 L of oxygen this morning. States that he is feeling better Hospitalist Physical - Physical exam Narrative exam: VITAL SIGNS: Reviewed. GENERAL: The patient appears normally developed, obese, no distress vital signs as documented. HEAD: No signs of head trauma. EYES: Pupils are equal. Extraocular motions intact. EARS: Hearing grossly intact. MOUTH: Oropharynx is normal. NECK: No adenopathy, no JVD. CHEST: Chest with diminished breath sounds bilaterally. Tachypnea no wheezes, rales, or rhonchi. CARDIAC: Regular rate and rhythm. S1 and S2, without murmurs, gallops, or rubs. VASCULAR: No Edema. Peripheral pulses normal and equal in all extremities. ABDOMEN: Soft, non tender and non distended. No rebound or guarding, and no masses palpated. Bowel Sounds normal. MUSCULOSKELETAL: Good range of motion of all major joints. Extremities without clubbing, cyanosis or edema. NEUROLOGIC EXAM: Alert and oriented x 3 No focal sensory or strength deficits. Speech normal. Follows commands. PSYCHIATRIC: Mood normal. SKIN: detail exam as documented in skin assessment - Constitutional Vitals: Temp Pulse Resp BP Pulse Ox 97.8 F 60 12 103/68 96 01/16/21 08:00 01/16/21 11:01 01/16/21 11:01 01/16/21 11:01 01/16/21 11:01 General appearance: Present: no acute distress Results - Labs CBC & Chem 7: 01/16/21 04:36 01/16/21 04:36 Labs: Laboratory Last Values WBC 7.6 K/mm3 (4.5-11.0) 01/16/21 04:36 RBC 3.53 M/mm3 (3.65-5.03) L 01/16/21 04:36 Hgb 12.9 gm/dl (11.8-15.2) 01/16/21 04:36 Hct 36.5 % (35.5-45.6) 01/16/21 04:36 MCV 103 fl (84-94) H 01/16/21 04:36 MCH 36 pg (28-32) H 01/16/21 04:36 MCHC 35 % (32-34) H 01/16/21 04:36 RDW 13.1 % (13.2-15.2) L 01/16/21 04:36 Plt Count 242 K/mm3 (140-440) 01/16/21 04:36 Lymph % (Auto) 8.4 % (13.4-35.0) L 01/16/21 04:36 [place] % (Auto) 6.6 % (0.0-7.3) 01/16/21 04:36 Eos % (Auto) 0.0 % (0.0-4.3) 01/16/21 04:36 Baso % (Auto) 0.0 % (0.0-1.8) 01/16/21 04:36 Lymph # (Auto) 0.6 K/mm3 (1.2-5.4) L 01/16/21 04:36 [place] # (Auto) 0.5 K/mm3 (0.0-0.8) 01/16/21 04:36 Eos # (Auto) 0.0 K/mm3 (0.0-0.4) 01/16/21 04:36 Baso # (Auto) 0.0 K/mm3 (0.0-0.1) 01/16/21 04:36 Seg Neutrophils % 85.0 % (40.0-70.0) H 01/16/21 04:36 Seg Neutrophils # 6.4 K/mm3 (1.8-7.7) 01/16/21 04:36 D-Dimer 548.11 ng/mlDDU (0-234) H 01/15/21 07:04 Sodium 142 mmol/L (137-145) 01/16/21 04:36 Potassium 4.9 mmol/L (3.6-5.0) D 01/16/21 04:36 Chloride 102.9 mmol/L (98-107) 01/16/21 04:36 Carbon Dioxide 30 mmol/L (22-30) 01/16/21 04:36 Anion Gap 14 mmol/L 01/16/21 04:36 BUN 22 mg/dL (9-20) H 01/16/21 04:36 Creatinine 1.2 mg/dL (0.8-1.3) 01/16/21 04:36 Estimated GFR > 60 ml/min 01/16/21 04:36 BUN/Creatinine Ratio 18 % 01/16/21 04:36 Glucose 115 mg/dL (75-100) H 01/16/21 04:36 Calcium 10.2 mg/dL (8.4-10.2) 01/16/21 04:36 Ferritin 425.4 ng/mL (30.0-300.0) H 01/15/21 07:04 Total Bilirubin 0.50 mg/dL (0.1-1.2) 01/16/21 04:36 AST 19 units/L (5-40) 01/16/21 04:36 ALT 20 units/L (7-56) 01/16/21 04:36 Alkaline Phosphatase 60 units/L (35-129) 01/16/21 04:36 Lactate Dehydrogenase 209 units/L (91-180) H 01/15/21 07:04 Lactate Dehydrogenase 219 units/L (91-180) H 01/15/21 07:04 C-Reactive Protein 0.10 mg/dL (0.00-1.30) 01/15/21 07:04 C-Reactive Protein 0.10 mg/dL (0.00-1.30) 01/15/21 07:04 NT-Pro-B Natriuret Pep 4633 pg/mL (0-900) H 01/15/21 07:04 Total Protein 6.8 g/dL (6.3-8.2) 01/16/21 04:36 Albumin 4.5 g/dL (3.9-5) 01/16/21 04:36 Albumin/Globulin Ratio 2.0 % 01/16/21 04:36 Procalcitonin < 0.05 ng/mL (<0.15) 01/15/21 07:04 Coronavirus (PCR) Negative (Negative) 01/15/21 08:39 Microbiology: Microbiology 01/15/21 07:09 Peripheral/Venous Blood Culture - Preliminary NO GROWTH AFTER 24 HOURS 01/15/21 07:04 Peripheral/Venous Blood Culture - Preliminary NO GROWTH AFTER 24 HOURS Active Medications - Current Medications Current Medications: Generic Name Dose Route Start Last Admin Trade Name Freq PRN Reason Stop Dose Admin Acetaminophen 650 mg 01/15/21 09:09 Acetaminophen 325 Mg Tab PO Q4H PRN Pain MILD(1-3)/Fever >100.5/ANGELES Albuterol 2.5 mg 01/15/21 09:09 Albuterol 2.5 Mg/3 Ml Nebu IH Q3HRT PRN Shortness Of Breath Albuterol/Ipratropium 1 ampul 01/15/21 14:00 01/16/21 13:51 Ipratropium/Albuterol Sulfate 3 Ml Ampul.Neb IH 1 ampul Q6HRT [facility] Administration Amiodarone HCl 200 mg 01/15/21 10:00 01/16/21 10:37 Amiodarone 200 Mg Tab PO 200 mg DAILY [facility] Administration Dexamethasone 6 mg 01/16/21 10:00 01/16/21 10:38 Dexamethasone 4 Mg/Ml Vial IV 6 mg DAILY [facility] Administration Enoxaparin Sodium 80 mg 01/15/21 10:00 01/16/21 10:38 Enoxaparin 80 Mg/0.8 Ml Inj SUB-Q 80 mg Q12HR [facility] Administration Furosemide 80 mg 01/15/21 10:00 01/16/21 10:37 Furosemide 40 Mg Tab PO 80 mg QDAY [facility] Administration Azithromycin 500 mg in 250 mls @ 250 mls/hr 01/16/21 10:00 Zithromax/Ns IV 01/19/21 10:59 Q24H [facility] Ceftriaxone Sodium 1 gm in 50 mls @ 100 mls/hr 01/16/21 10:00 01/16/21 10:39 Rocephin/Ns 1 Gm/50 Ml IV 01/19/21 10:29 100 mls/hr Q24H [facility] Administration Protocol Morphine Sulfate 2 mg 01/15/21 09:09 Morphine 2 Mg/1 Ml Inj IV Q4H PRN Pain, Moderate (4-6) Naloxone HCl 0.1 mg 01/15/21 09:09 Naloxone 0.4 Mg/1 Ml Inj IV Q2MIN PRN Res Rate </= 8 or 02 SAT < 92% Ondansetron HCl 4 mg 01/15/21 09:09 Ondansetron 4 Mg/2 Ml Inj IV Q4H PRN Nausea And Vomiting Sodium Chloride 10 ml 01/15/21 10:00 01/16/21 10:40 Sodium Chloride 0.9% 10 Ml Flush Syringe IV 10 ml BID [facility] Administration Sodium Chloride 10 ml 01/15/21 09:09 Sodium Chloride 0.9% 10 Ml Flush Syringe IV PRN PRN LINE FLUSH
[2021-01-16] MEDS: ASPIRIN EC 81 MG TAB PO SCH (16:25)
[2021-01-16] MEDS: MILRINONE-D5W 20 MG/100 ML 20 MG/100 ML BAG IV SCH ×2 (16:27→22:55)
[2021-01-16 18:52] LABS: BUN/Creatinine Ratio 23; Blood Urea Nitrogen 27 mg/dL (9-20); Calcium 9.8 mg/dL (8.4-10.2); Hemolysis Index 4
[2021-01-16] MEDS: FUROSEMIDE 40 MG/4 ML INJ IV SCH (18:54)
[2021-01-16] MEDS: SPIRONOLACTONE 25 MG TAB PO SCH (19:52)
[2021-01-16] MEDS: methylPREDNISolone Sod Succinate 125 MG/2 ML INJ IV SCH (22:54)
[2021-01-16] MEDS: HEPARIN 5,000 UNIT/1 ML VIAL SUB-Q SCH (22:55)
[2021-01-17] MEDS: IPRATROPIUM/ALBUTEROL SULFATE 3 ML AMPUL.NEB IH SCH ×3 (03:15→15:57)
[2021-01-17] MEDS: methylPREDNISolone Sod Succinate 125 MG/2 ML INJ IV SCH ×2 (06:04→13:10)
[2021-01-17] MEDS: FUROSEMIDE 40 MG/4 ML INJ IV SCH (06:05)
[2021-01-17] MEDS: HEPARIN 5,000 UNIT/1 ML VIAL SUB-Q SCH ×2 (06:05→13:10)
[2021-01-17] MEDS ORDERED: METOPROLOL SUCCINATE XL 50 MG TAB PO SCH (10:00)
[2021-01-17] MEDS ORDERED: LISINOPRIL 5 MG TAB PO SCH (10:00)
[2021-01-17] MEDS ORDERED: AZITHROMYCIN 250 MG TAB PO SCH (10:00)
[2021-01-17] MEDS: ASPIRIN EC 81 MG TAB PO SCH (10:45)
[2021-01-17] MEDS: cefTRIAXone/NS 1 GM/50 ML 1 GM/50 ML BAG IV SCH (10:45)
[2021-01-17] MEDS: MILRINONE-D5W 20 MG/100 ML 20 MG/100 ML BAG IV SCH (10:45)
[2021-01-17] MEDS: AMIODARONE 200 MG TAB PO SCH (10:46)
[2021-01-17] MEDS: SPIRONOLACTONE 25 MG TAB PO SCH (10:46)
--- NOTE | 2021-01-17 11:43 | Progress Note ---
Assessment and Plan 66 y/o male with dyspnea, most likely related to pulmonary edema and heart failure. 1. Suggest stopping steroids 2. Would stop Bronchodilators unless patient on these at home 3. Per Teresa and Cruz merida a pulm doc at the [place] but not sure why 4. Suggest walk test prior to discharge to see if he needs oxygen therapy at home 5. Will sign off, call if questions. Subjective Date of service: 01/17/21 Interval history: No acute events. On room air and continues to be on milrione drip. Objective Vital Signs - 12hr 01/17/21 01/17/21 01/17/21 02:00 03:49 08:06 Temperature 97.5 F L 97.9 F Pulse Rate 63 71 Pulse Rate [ 70 Bilateral] Respiratory 20 20 Rate Respiratory 16 Rate [Bilateral ] Blood Pressure 92/46 125/67 O2 Sat by Pulse 95 96 Oximetry 01/17/21 01/17/21 01/17/21 08:28 10:00 10:46 Temperature Pulse Rate 72 69 Pulse Rate [ Bilateral] Respiratory Rate Respiratory Rate [Bilateral ] Blood Pressure 118/72 116/71 O2 Sat by Pulse 94 96 Oximetry Constitutional: no acute distress, alert Eyes: non-icteric ENT: oropharynx moist Neck: supple Effort: normal Ascultation: Bilateral: clear, diminished breath sounds Cardiovascular: regular rate and rhythm Gastrointestinal: normoactive bowel sounds, soft, non-tender, non-distended Integumentary: normal Extremities: no cyanosis CBC and BMP: 01/16/21 04:36 01/16/21 18:03 ABG, PT/INR, D-dimer: PT/INR, D-dimer D-Dimer 548.11 ng/mlDDU (0-234) H 01/15/21 07:04 Abnormal lab findings: Abnormal Labs 01/15/21 01/15/21 01/15/21 07:04 07:04 07:04 RBC MCV MCH MCHC RDW Lymph % (Auto) Lymph # (Auto) Seg Neutrophils % D-Dimer 548.11 H BUN 25 H Creatinine 1.4 H Glucose 184 H Ferritin 425.4 H Lactate Dehydrogenase 219 H NT-Pro-B Natriuret Pep 01/15/21 01/15/21 01/15/21 07:04 07:04 07:04 RBC 3.48 L MCV 104 H MCH 36 H MCHC RDW Lymph % (Auto) 8.7 L Lymph # (Auto) 0.7 L Seg Neutrophils % 83.4 H D-Dimer BUN Creatinine Glucose 189 H Ferritin Lactate Dehydrogenase 209 H NT-Pro-B Natriuret Pep 4633 H 01/16/21 01/16/21 01/16/21 04:36 04:36 18:03 RBC 3.53 L MCV 103 H MCH 36 H MCHC 35 H RDW 13.1 L Lymph % (Auto) 8.4 L Lymph # (Auto) 0.6 L Seg Neutrophils % 85.0 H D-Dimer BUN 22 H 27 H Creatinine Glucose 115 H 167 H Ferritin Lactate Dehydrogenase NT-Pro-B Natriuret Pep
--- NOTE | 2021-01-17 11:50 | Progress Note ---
Assessment and Plan - Patient Problems (1) Acute on chronic systolic heart failure Current Visit: Yes Status: Acute Plan to address problem: Patient has a history of long standing, chronic left ventricular systolic failure, presents with symptoms of heart failure exacerbation, likely due to dietary salt indiscretion. In addition to intravenous diuretics, we have added a trial of intravenous milrinone for systolic his heart failure exacerbation. We will continue other guideline directed medical therapy as tolerated. An echocardiogram has been ordered for left ventricular function reassessment. The chest x-ray shows a predominant right lung infiltrate, suggesting perhaps an atypical pneumonia. Will defer to pulmonary medicine for further management, and consider a recheck of his Covid 19 test. Subjective Date of service: 01/17/21 Interval history: Patient is comfortable, no acute distress, tolerating milrinone infusion. No chest pain and his shortness of breath has improved. Objective Vital Signs Temp Pulse Pulse Resp Resp BP BP 01/17/21 10:46 69 116/71 01/17/21 10:00 01/17/21 08:28 72 118/72 01/17/21 08:06 97.9 F 71 20 125/67 01/17/21 03:49 97.5 F L 63 20 92/46 01/17/21 02:00 70 16 01/16/21 23:02 97.8 F 66 19 115/69 01/16/21 22:29 01/16/21 21:32 01/16/21 21:10 01/16/21 21:05 62 16 01/16/21 19:53 61 14 109/65 01/16/21 19:52 61 109/65 01/16/21 13:51 63 16 Pulse Ox 01/17/21 10:46 01/17/21 10:00 96 01/17/21 08:28 94 01/17/21 08:06 96 01/17/21 03:49 95 01/17/21 02:00 01/16/21 23:02 89 01/16/21 22:29 96 01/16/21 21:32 98 01/16/21 21:10 98 01/16/21 21:05 01/16/21 19:53 98 01/16/21 19:52 01/16/21 13:51 - Physical Examination General: No Apparent Distress HEENT: Positive: PERRL Neck: Positive: neck supple Cardiac: Positive: Reg Rate and Rhythm Lungs: Positive: Decreased Breath Sounds Neuro: Positive: Grossly Intact Abdomen: Positive: Soft Skin: Positive: Clear Extremities: Absent: edema - Labs and Meds Comprehensive Metabolic Panel 01/16/21 Range/Units 18:03 Sodium 139 (137-145) mmol/L Potassium 3.8 D (3.6-5.0) mmol/L Chloride 98.3 (98-107) mmol/L Carbon Dioxide 30 (22-30) mmol/L BUN 27 H (9-20) mg/dL Creatinine 1.2 (0.8-1.3) mg/dL Glucose 167 H (75-100) mg/dL Calcium 9.8 (8.4-10.2) mg/dL
[2021-01-17 12:37] VITALS: BP 125/67
--- NOTE | 2021-01-17 14:16 | Discharge Summary ---
Providers - Providers Date of Admission: 01/15/21 09:09 Date of discharge: 01/17/21 Attending physician: ADI PLASENCIA MD 01/15/21 09:09 Consult to Physician [CONS] Routine Comment: Consulting Provider: LUCHO ANDREW Physician Instructions: Reason For Exam: chf Primary care physician: RECRUITER MANAGER Hospitalization Reason for admission: Pulmonary edema, acute respiratory failure Condition: Stable Hospital course: History of present illness: Patient is a 66-year-old male with hx of CHF, AICD in situ, hyperlipidemia, HTN hx of ventricular fibrillation, BARBARA who presents with severe shortness of breath for 3 hours prior to arrival. He reports that this morning but he woke up with cough and profuse sweating. He proceeded to call EMS who on arrival noted that the patient's oxygen saturation was 68% on room air and remarkably was ambulatory despite his severe hypoxia. He was brought to the hospital for further evaluation. He denies any chest pain nausea vomiting or diarrhea he reports that he was fully vaccinated against COVID-19 in July. He follows [facility] and also his finance vice president and PCP and recreational assistant at the [facility]. He does tell me that he is supposed to be on a CPAP at home for obstructivesleepapnea but has not been able to use it due to not being able to tolerate the device. In the ER he was immediately put on BiPAP with oxygen improvement to 94%. Hospital course Acute respiratory failure with hypoxia, Acute systolic heart failure, Pulmonary edema Covid test is negative patient will be transferred to telemetry. Is apparent that this is likely secondary to flash pulmonary edema which has improved. Patient was diuresed and patient was off oxygen and does not need oxygen. Patient was on empiric IV antibiotics, I discontinued antibiotics because patient did not have any fever, elevated white blood cell count. Chest x-ray during admission and repeat chest x-ray did not show any infiltrates Cardiology and pulmonary input appreciated I have discussed with Dr. Marmolejo and he told me that pulmonary edema, improved significantly. There is no infiltrates on first or second chest x-ray. Patient does not need antibiotics at discharge. Patient has his appropriate CHF medications at home, advised about low-salt diet and fluid restriction. Patient understood and discharged home. Disposition: - TO HOME OR SELFCARE Final Discharge Diagnosis (Prints w/discharge instructions): Pulmonary edema. Acute on chronic chronic systolic CHF Time spent for discharge: 35-minutes - Discharge Diagnoses (1) Acute on chronic systolic heart failure Status: Acute (2) Acute respiratory failure with hypoxia Status: Acute (3) Pulmonary edema Status: Acute Core Measure Documentation - Palliative Care Palliative Care/ Comfort Measures: Not Applicable - Core Measures Any of the following diagnoses?: heart failure - Heart Failure Discharge Requirements UMESH/ARB for LVSD if EF <40%: Yes Beta honorio at discharge: Yes Exam - Physical Exam Narrative exam: Not in cardiopulmonary distress. The patient appeared well nourished and normally developed. Vital signs as documented. Head exam is unremarkable. No scleral icterus . Neck is without jugular venous distension, thyromegaly, or carotid bruits. Lungs are clear to auscultation. Cardiac exam reveals regular rate and Rhythm. Abdominal exam reveals normal bowel sounds, nontender, no organomegaly. Extremities are nonedematous and both femoral and pedal pulses are normal. CAPACITY PLANNING ANALYST: Alert and oriented 3. No focal weakness. - Constitutional Vitals: Temp Pulse Resp BP Pulse Ox 98.3 F 61 20 125/67 98 01/17/21 12:07 01/17/21 12:07 01/17/21 12:07 01/17/21 12:07 01/17/21 12:07 Plan Activity: no restrictions Weight Bearing Status: Full Weight Bearing Diet: low salt, other (Water restriction to 1.8 L) Follow up with: PRIMARY MD GERMAINE [Primary Care Provider] - 3-5 Days
--- NOTE | 2021-01-17 14:16 | XRay Report ---
CHEST 1 VIEW INDICATION: pneumonia. COMPARISON: 01/17/2021 FINDINGS: Support devices: Pacemaker device remains in good position. Heart: Heart size is at the upper limits of normal. Lungs/Pleura: The lungs are clear. Bilateral congestive changes have resolved. No pleural effusion or pneumothorax. Additional findings: None. IMPRESSION: Borderline heart size. Lungs clear. Signer Name: Kory Marmolejo Jr, MD Signed: 01/17/2021 2:12 PM Workstation Name: [id number]
== END 2021-01-17 16:47 | disposition home or self-care (01) | DRG 291 ==
LOC: ED 06:26 → 3A 09:09 → 4A 01-16 10:42
PROVIDERS: ADMIT Internal Medicine; ATTEND Internal Medicine
PROC: 5A09357 Assistance with Respiratory Ventilation, Less than 24 Consecutive Hours, Continuous Positive Airway Pressure (ICD-10-PCS; principal; 2021-01-15)
DX: I11.0 Hypertensive heart disease with heart failure (principal); J96.01 Acute respiratory failure with hypoxia; I50.23 Acute on chronic systolic (congestive) heart failure; I42.8 Other cardiomyopathies; Z20.822 Contact with and (suspected) exposure to COVID-19; G47.33 Obstructive sleep apnea (adult) (pediatric); I25.10 Atherosclerotic heart disease of native coronary artery without angina pectoris; Z60.2 Problems related to living alone; E78.5 Hyperlipidemia, unspecified; Z95.810 Presence of automatic (implantable) cardiac defibrillator; Z92.21 Personal history of antineoplastic chemotherapy; Z85.46 Personal history of malignant neoplasm of prostate; Z82.49 Family history of ischemic heart disease and other diseases of the circulatory system; Z87.891 Personal history of nicotine dependence
CPT/HCPCS: 36415; 71045; 80048; 80053; 82728; 82947; 83615; 83880; 84145; 85025; 85379; 86140; 87040; 93306; 94640; 94644; 96374; G0378; J0456; J0696; J1100; J1644; J1650; J1940; J2260; J2270; J2405; J2930; U0003